=== PATIENT | female | born 1985 | race Caucasian/White ===

== ENCOUNTER 2017-07-10 01:06 | Inpatient (IN) | payer MEDICAID ==
[~2017-07-10] VITALS: Ht 165.1 cm; Wt 74.8 kg
[2017-07-10] MEDS ORDERED: ceFAZolin(*) 2GM/D5W 50ML 50 ML IVPB PRN (01:09)
[2017-07-10] MEDS ORDERED: OXYTOCIN 30 UNIT/D5LR 500 ML 500 ML IV PRN (01:09)
[2017-07-10] MEDS ORDERED: FAMOTIDINE(*) 20MG/50ML PREMIX 50 ML IVPB PRN (01:09)
[2017-07-10] MEDS ORDERED: LR(*) 1000 ML BAG 1,000 ML IV SCH (01:09)
[2017-07-10] MEDS ORDERED: METOCLOPRAMIDE 10 MG/2 ML SDV IVP PRN (01:10)
[2017-07-10] MEDS ORDERED: fentaNYL CITR 100 MCG/2 ML AMP IVP PRN (01:10)
[2017-07-10] MEDS ORDERED: LIDOCAINE/SOD BICARB 8.4% SYR SC PRN (01:10)
[2017-07-10] MEDS ORDERED: LIDOCAINE 1% LOCAL 300 MG/30ML INJ PRN (01:10)
--- NOTE | 2017-07-10 02:18 | History & Physical ---
History of Present Illness EDC per LMP: Jul 18, 2017 Estimated Gestational Age: 38.6 Chief Complaint Labor History of Present Illness 32yo at 38w6d presented to L&D in labor. She reported SROM at 2345 on 07/09 and then contractions began. She arrived on the floor and was noted to be completely dilated with minimal urge to push. She had an uncomplicated course. GBS neg. History Patient's Blood Type: O Positive Rubella Status: Immune Group B Strep Screen: Negative Obstetrical History: Hx 3 SVDs Past Medical History: PMH: None PSH: None Allergies: Coded Allergies: No Known Drug Allergies (Unverified , 07/10/17) Social History: No T/E/D. . Review of Systems Constitutional: No Fever Eyes: No Vision Change Cardiovascular: No Chest Pain Respiratory: No Shortness of Breath, No Cough Gastrointestinal: No Nausea, No Vomiting, No Diarrhea Musculoskeletal: No Pain Psychiatric: No Depression, No Anxiety Exam General Exam Vital Signs VS reviewed General Apperance: Alert/Awake/No Acute Distress Neuro: No Gross deficits Eyes: Normal Extraocular Movement & Vison Cardiovascular: Regular Rate and Rhythm Respiratory: No Respiratory Distress Abdomen: Gravid - Non-Tender Musculoskeletal: No Weakness/Pain Extremities: No Cyanosis,Clubbing or Edema Integumentary: Skin Intact without Lesions or Rash Psychological: Alert & Oriented X3, Appropriate Mood & Affect Vaginal Discharge/Fluid?: Clear Fluid Cervical Dialation: 10 Station: -1 Presentation: Vertex Uterine Contractions(Q min): 4 Fetus FHT Category: I Medical Decision Making Pre-Admit Course Medical Record Review: Yes VTE Prophylasis: Adult Deep Vein Thrombosis/Pulmonary: No Pharmacological Contraindicati: Pt at Low Risk for VTE Mechanical Contraindications: Pt at Low Risk for VTE Assessment and Plan Problems: (1) Spontaneous rupture of amniotic membranes Assessment & Plan: 32yo presented in spontaneous labor after SROM. Pt prepped for delivery. without complication as per procedure note. PARIS GASTON MD Jul 10, 2017 02:18
[2017-07-10] MEDS ORDERED: BENZOCAINE 20% 60 ML BTL TP PRN (02:20)
[2017-07-10] MEDS ORDERED: MAGNESIUM HYDROXIDE* 30ML UDCP PO PRN (02:20)
[2017-07-10] MEDS ORDERED: LANOLIN OINT 7 GM TUBE TP PRN (02:20)
[2017-07-10] MEDS ORDERED: APAP/HYDROCODONE 325/5 TAB PO PRN (02:20)
[2017-07-10] MEDS ORDERED: GLYCERIN/WITCH HAZEL LEAF 1 PK TOP PRN (02:20)
[2017-07-10] MEDS ORDERED: HYDROCORTISONE 2.5% CR 30GM TB PR PRN (02:20)
[2017-07-10] MEDS ORDERED: ACETAMINOPHEN 325 MG TAB PO PRN (02:20)
--- NOTE | 2017-07-10 02:21 | OB Delivery Note ---
Delivery Note Vaginal Delivery Type: Spont. Vaginal Delivery Delivery Date: Jul 10, 2017 Delivery Time: 01:52 Estimated Gestational Age(wks): 38.6 Labor Stage III (minutes): 15 Delivery Anesthesia: Local Sex: Female Infant Weight (gms): 3842 [place] Apgars: 1 Minute (7), 5 Minute (8) Repair Needed: 2nd Degree Estimated Blood Loss: 200 PARIS GASTON MD Jul 10, 2017 02:21
[2017-07-10] MEDS ORDERED: IBUP800T37 PO (02:27)
[2017-07-10] MEDS: IBUPROFEN 800 MG TAB PO SCH ×3 (02:51→18:33)
[2017-07-10 02:55] LABS: PLATELET COUNT, AUTOMATED 271 K/uL (150-450)
[2017-07-10 03:08] VITALS: BP 125/83; Ht 165.1 cm; Wt 74.8 kg
--- NOTE | 2017-07-10 03:49 | DELIVERY NOTE ---
DELIVERY DATE: July 10, 2017 SURGEON: Lucia Mcneal MD ANESTHESIA: Local, lidocaine. PREOPERATIVE DIAGNOSIS Intrauterine at 38 weeks and 6 days in spontaneous active labor. POSTOPERATIVE DIAGNOSIS 1. Intrauterine at 38 weeks and 6 days in spontaneous active labor. 2. Delivery of a viable female infant at 0152 hours, weighing 8 pounds 7 ounces or 3842 grams with Apgars of 7 at one minute and 9 at five minutes. PROCEDURE 1. Spontaneous vaginal delivery. 2. Repair of second degree midline laceration. ESTIMATED BLOOD LOSS 200 mL. INDICATIONS FOR PROCEDURE This patient is a 32-year-old 4, para 3 who presents at 38 weeks and 6 days in spontaneous active labor. She describes spontaneous rupture of membranes at 2345 hours on July 09, 2017. Contractions then began. She presented to labor and delivery was noted to be complete upon admission at 0125 hours. She therefore was prepared for delivery. DESCRIPTION OF PROCEDURE The patient was noted to be complete and at -1 station. She was prepped for delivery and allowed to push. Over one single contraction, she was able to bring the 's vertex down to the perineum, and then delivered the vertex in the TEODORA position over an intact perineum. A nuchal cord was noted and delivered through. The infant was rotated in a counter clockwise manner until the 's left shoulder was delivered without difficulty followed by delivery of the right shoulder. The remainder of the infant was delivered. The infant had spontaneous cry and spontaneous movement of all four extremities. The was dried, stimulated, and the oropharynx and nasopharynx were bulb suctioned. The was then passed to the mother's abdomen, where nursing personnel was in attendance. After approximately two minutes, the cord was clamped x two and cut by the father of the baby. Cord blood was then obtained and passed off the table. Examination of the perineum revealed a second-degree midline laceration. This laceration was infiltrated with 1% lidocaine without epinephrine. Using a 4-0 Vicryl suture, this laceration was reapproximated. The placenta was then easily delivered spontaneously and passed off the table. Uterine massage was applied, and minimal bleeding was noted at that time. Pitocin had been started through the IV to help firm the uterus. The patient tolerated this procedure well and recovered in labor and delivery with her . All sponge and needle counts were correct at the end of this procedure. [facility]
[2017-07-10 03:54] VITALS: BP 116/66
[2017-07-10] MEDS ORDERED: LIDOCAINE 1% LOCAL 300 MG/30ML 30 ML ONE (04:56)
--- NOTE | 2017-07-10 08:19 | OB/GYN Progress Note ---
OB Subjective Progress Notes Subjective Doing well. Pain controlled with oral medications. Tolerating regular diet. Ambulating. Voiding. Normal lochia. No preeclampsia symptoms. OB Objective Physical Exam Vital Signs Date Time Temp Pulse Resp B/P (MAP) Pulse Ox O2 Delivery O2 Flow Rate FiO2 07/10/17 03:54 98.0 60 16 116/66 (83) Room Air 07/10/17 03:08 96 General Appearance: Alert/Awake/No Acute Distress Neurological: No Gross deficits Eyes: Normal Extraocular Movement & Vison Cardiovascular: Normal Rhythm & Peripheral Pulses, Regular Rate and Rhythm Respiratory: No Respiratory Distress, Clear to Auscultation Abdomen: Soft, Non-Tender, Non-Distended, Fundus Firm Extremities: No Cyanosis,Clubbing or Edema Integumentary: Skin Intact without Lesions or Rash Psychological: Alert & Oriented X3, Appropriate Mood & Affect Result Diagram: 07/10/17 0243 Assessment and Plan Problems: (1) care and examination immediately after delivery Assessment & Plan: PPD#0 s/p . Discharge tomorrow. PARIS GASTON MD Jul 10, 2017 08:19
[2017-07-10 09:45] VITALS: BP 116/56
[2017-07-10] MEDS ORDERED: MEASLES,MUMP,RUBELLA VAC 0.5ML SUBQ ONE (10:00)
[2017-07-10] MEDS ORDERED: DIPHTH/TETANUS/ACEL. PERTUSSIS IM ONLY ONE (10:00)
[2017-07-10] MEDS ORDERED: INFLUENZA VIRUS VAC 0.5 ML SYR IM ONLY ONE (10:00)
[2017-07-10] MEDS: DOCUSATE CALCIUM 240 MG CAP PO SCH ×2 (10:27→22:08)
[2017-07-10 13:12] VITALS: BP 111/58
[2017-07-10 20:25] VITALS: BP 107/54
[2017-07-11 00:10] VITALS: BP 115/56
[2017-07-11] MEDS: IBUPROFEN 800 MG TAB PO SCH ×2 (00:21→08:34)
[2017-07-11 03:30] VITALS: BP 118/78
[2017-07-11 07:00] VITALS: BP 121/62
--- NOTE | 2017-07-11 08:04 | OB/GYN Discharge Summary ---
Discharge Summary Reason for Hosp/Final Diag: (1) care and examination immediately after delivery Hospital Course & Plan: PPD#1. Meeting milestones. Likely desires discharge to home today. Discussed routine expectations. Questions answered. Follow up in clinic in 6wks for check. Lates Vital Signs Vital Signs Date Time Temp Pulse Resp B/P (MAP) Pulse Ox O2 Delivery O2 Flow Rate FiO2 07/11/17 03:30 98.2 78 16 118/78 (91) Room Air 07/10/17 13:12 95 Weight (Pounds): 165 Result Diagram: 07/10/17 0243 Condition: Improved Discharge: Home, Self Care Follow up Referrals: [facility] - In 6 Weeks @ [facility] Discharge Diet: As Tolerates Discharge Activity: Pelvic Rest PARIS GASTON MD Jul 11, 2017 08:04
--- NOTE | 2017-07-11 08:04 | OB/GYN Progress Note ---
OB Subjective Progress Notes Subjective Doing well. Pain controlled with oral medications. Tolerating regular diet. Ambulating. Voiding. Normal lochia. No preeclampsia symptoms. OB Objective Physical Exam Vital Signs Date Time Temp Pulse Resp B/P (MAP) Pulse Ox O2 Delivery O2 Flow Rate FiO2 07/11/17 03:30 98.2 78 16 118/78 (91) Room Air 07/10/17 13:12 95 General Appearance: Alert/Awake/No Acute Distress Neurological: No Gross deficits Eyes: Normal Extraocular Movement & Vison Cardiovascular: Normal Rhythm & Peripheral Pulses, Regular Rate and Rhythm Respiratory: No Respiratory Distress, Clear to Auscultation Abdomen: Soft, Non-Tender, Non-Distended, Fundus Firm Extremities: No Cyanosis,Clubbing or Edema Integumentary: Skin Intact without Lesions or Rash Psychological: Alert & Oriented X3, Appropriate Mood & Affect Result Diagram: 07/10/17 0243 Assessment and Plan Problems: (1) care and examination immediately after delivery Assessment & Plan: PPD#1. Meeting milestones. Likely desires discharge to home today. Discussed routine expectations. Questions answered. Follow up in clinic in 6wks for check. PARIS GASTON MD Jul 11, 2017 08:04
[2017-07-11] MEDS: DOCUSATE CALCIUM 240 MG CAP PO SCH (08:34)
[2017-07-11 11:00] VITALS: BP 137/72
[2017-07-11 15:00] VITALS: BP 115/56
== END 2017-07-11 16:05 | disposition home or self-care (01) | DRG 775 ==
LOC: OB 01:06
PROVIDERS: ADMIT Obstetrics & Gynecology; ATTEND Obstetrics & Gynecology
PROC: 10E0XZZ Delivery of Products of Conception, External Approach (ICD-10-PCS; principal; 2017-07-10)
PROC: 0KQM0ZZ Repair Perineum Muscle, Open Approach (ICD-10-PCS; 2017-07-10)
DX: O69.81X0 Labor and delivery complicated by cord around neck, without compression, not applicable or unspecified (principal); O70.1 Second degree perineal laceration during delivery; Z37.0 Single live birth; Z3A.38 38 weeks gestation of pregnancy
CPT/HCPCS: 85025; 86850; 86900; 86901; J2001; J2590; J7120